=== PATIENT | male | born 1955 | race Caucasian/White ===

== ENCOUNTER 2017-07-24 08:24 | Day surgery (SDC) | payer BC ==
[2017-07-24] VITALS (7 sets, daily range): BP systolic 115–130; BP diastolic 70–75; PULSE 59–70; TEMP 98–98.3
[~2017-07-24] VITALS: Ht 182.9 cm; Wt 79.1 kg
[~2017-07-24 08:24] MED LIST: LEVAQUIN 750MG750 M1 PO; ZOFRAN 4MG T4 MG/TAB PO; [UNRECOGNIZED DRUG - OTHER]; [UNRECOGNIZED DRUG - OTHER] PO; [UNRECOGNIZED DRUG - OTHER] TOP
[2017-07-24] MEDS ORDERED: NORCO 325 MG-51 TAB PO (13:57)
== END 2017-07-24 15:45 | disposition home or self-care (01) ==
LOC: SDCO 08:24
DX: Z12.11 Encounter for screening for malignant neoplasm of colon (principal); K40.90 Unilateral inguinal hernia, without obstruction or gangrene, not specified as recurrent; Z80.8 Family history of malignant neoplasm of other organs or systems
CPT/HCPCS: C1781; J0690; J1100; J1885; J2405; J2704; J3010; J7120

== ENCOUNTER 2018-03-08 21:53 | Emergency (ER) | payer BC ==
[~2018-03-08] VITALS: Ht 182.9 cm; Wt 79.5 kg
[~2018-03-08 21:53] MED LIST changes: +NORCO 325 MG-51 TAB PO
[2018-03-08 22:00] VITALS: BP 145/84; TEMP 99.1
[2018-03-08 22:49] VITALS: PULSE 63
== END 2018-03-08 22:46 | disposition home or self-care (01) ==
LOC: COL.ER 21:53
DX: H69.82 Other specified disorders of Eustachian tube, left ear (principal); J31.0 Chronic rhinitis

== ENCOUNTER → 2022-06-05 | Outpatient (CLI) | payer OTHER | LOC: COL.RAD 12:15 | DX: G20 Parkinson's disease (principal) ==